=== PATIENT | female | born 1980 ===

== ENCOUNTER 2017-03-01 12:14 | Emergency (ER) | payer MEDICAID, OTHER ==
[2017-03-01 12:14] VITALS: BMI 20.9
[2017-03-01 12:20] VITALS: RESP 18
--- NOTE | 2017-03-01 13:32 | C.PDOC ---
History Of Present Illness Patient is a 36 y/o female presents to the ED for evaluation of worsening lower back pain after lifting a heavy patient at work 3 days ago. 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 States that pain is worse with heating pads and with hot showers. Denies taking any pain meds. Otherwise, denies any trauma, fever, chills, n/v/d, bowel or bladder incontinence/retention, saddle anesthesia, paresthesia, focal weakness, sensory deficit, gait dysfunction, hematuria or dysuria. No radiation of pain into lower extremities. Time Seen by Provider: 03/01/17 12:36 Chief Complaint (Nursing): Back Pain History Per: Patient History/Exam Limitations: no limitations Onset/Duration Of Symptoms: Days (3) Current Symptoms Are (Timing): Still Present Quality Of Discomfort: "Pain" Severity: Moderate Associated Symptoms: None. denies: Incontinence, New Weakness, New Numbness Exacerbating Factor(s): Nothing Recent travel outside of the [place]: No Additional History Per: Patient Past Medical History Reviewed: Historical Data, Nursing Documentation, Vital Signs Vital Signs: Last Vital Signs Temp 98.2 F 03/01/17 14:19 Pulse 61 03/01/17 14:19 Resp 18 03/01/17 14:19 BP 111/72 03/01/17 14:19 Pulse Ox 98 03/01/17 14:19 - Medical History PMH: Anxiety, Asthma, Fractures (LEFT LEG IN CHILDHOOD), Gastritis Denies: Chronic Kidney Disease Family History: States: Unknown Family Hx - Social History Hx Alcohol Use: Yes Hx Substance Use: No - Immunization History Hx Tetanus Toxoid Vaccination: No Hx Influenza Vaccination: Yes Hx Pneumococcal Vaccination: No Review Of Systems Except As Marked, All Systems Reviewed And Found Negative. Constitutional: Negative for: Fever, Chills Cardiovascular: Negative for: Chest Pain, Palpitations Respiratory: Negative for: Cough, Shortness of Breath Gastrointestinal: Negative for: Nausea, Vomiting, Abdominal Pain Genitourinary: Negative for: Dysuria, Frequency, Incontinence, Hematuria Musculoskeletal: Positive for: Back Pain Skin: Negative for: Rash, Bruising Neurological: Negative for: Weakness, Numbness Physical Exam - Physical Exam Appears: Non-toxic, No Acute Distress Skin: Normal Color, Warm, Dry Head: Atraumatic, Normacephalic Eye(s): bilateral: Normal Inspection Oral Mucosa: Moist Neck: Normal ROM, Supple Cardiovascular: Rhythm Regular, No Murmur Respiratory: Normal Breath Sounds, No Rales, No Rhonchi, No Wheezing Gastrointestinal/Abdominal: Soft, No Tenderness Back: No CVA Tenderness, No Vertebral Tenderness, Paraspinal Tenderness ( digitally reproducible tenderness to bilateral sacroiliac region) Extremity: Normal ROM, No Tenderness, No Deformity Neurological/Psych: Oriented x3, Normal Speech, Normal Cognition ED Course And Treatment O2 Sat by Pulse Oximetry: 99 (RA) Pulse Ox Interpretation: Normal Progress Note: motrin, ice pack Medical Decision Making Medical Decision Making: sacroiliac back strain, no nerve issues nsaids and ice educated. Disposition Doctor Will See Patient In The: Office Counseled Patient/Family Regarding: Studies Performed, Diagnosis - Disposition Referrals: [facility] [Outside] Mora Gaspar MD [Primary Care Provider] - Disposition: HOME/ ROUTINE Disposition Time: 13:31 Condition: GOOD Additional Instructions: ice packs 1/2 hour per hour, nothing hot!! Motrin 400-600 mg every 6 hours as needed Pepcid 20 mg @ night to prevent stomach irritation from the Motrin No heavy lifting for 1 week Follow-up in our Clinic as needed Instructions: Acute Low Back Pain (ED) Forms: [facility] ([place]), Work Excuse - Clinical Impression Clinical Impression: Low back strain - Scribe Statement The provider has reviewed the documentation as recorded by the Nazarioibele Melchor All medical record entries made by the Scribe were at my direction and personally dictated by me. I have reviewed the chart and agree that the record accurately reflects my personal performance of the history, physical exam, medical decision making, and the department course for this patient. I have also personally directed, reviewed, and agree with the discharge instructions and disposition.
[2017-03-01 14:20] VITALS: BP 111/72; PULSE 61; TEMP 98.2
[2017-03-01 15:42] VITALS: O2SAT 99
== END 2017-03-01 13:50 | disposition home or self-care (01) ==
LOC: C.ER 12:14 → SUPCPDRO 12:14 → C.ER 13:50
DX: S39.012A Strain of muscle, fascia and tendon of lower back, initial encounter (principal); X50.9XXA Other and unspecified overexertion or strenuous movements or postures, initial encounter; Y93.F2 Activity, caregiving, lifting; Y92.009 Unspecified place in unspecified non-institutional (private) residence as the place of occurrence of the external cause; Y99.0 Civilian activity done for income or pay

== ENCOUNTER 2018-08-25 14:43 | Emergency (ER) | payer MEDICAID, OTHER ==
[2018-08-25 14:44] VITALS: BMI 20.9
[2018-08-25 15:14] VITALS: RESP 18
--- NOTE | 2018-08-25 16:55 | C.PDOC ---
History Of Present Illness 37 y/o female presents to the ED for evaluation s/p facial trauma. Two nights ago patient was drinking and she fell down some stairs, striking her left cheek/eye area. She now complains of persistent pain and swelling to the area surrounding left eye. She also notes that when chewing, she feels a weird sensation to her cheek. Patient is concerned she may haven broken a facial bone. Otherwise she states her vision is unaffected. She denies double or blurry vision, photophobia, severe headache, nausea, vomiting, or other complaints. Time Seen by Provider: 08/25/18 15:45 Chief Complaint (Nursing): Eye Problem History Per: Patient History/Exam Limitations: no limitations Onset/Duration Of Symptoms: Days (x 2) Current Symptoms Are (Timing): Still Present Injury To Eye?: Yes Associated Symptoms: denies: Decreased Vision, Discharge From Eye Past Medical History Reviewed: Historical Data, Nursing Documentation, Vital Signs Vital Signs: Last Vital Signs Temp 98.4 F 08/25/18 15:10 Pulse 87 08/25/18 15:10 Resp 18 08/25/18 15:10 BP 129/83 08/25/18 15:10 Pulse Ox 98 08/25/18 15:10 - Medical History PMH: Anxiety, Asthma, Fractures (LEFT LEG IN CHILDHOOD), Gastritis Denies: Chronic Kidney Disease Family History: States: Unknown Family Hx - Social History Hx Alcohol Use: Yes Hx Substance Use: No - Immunization History Hx Tetanus Toxoid Vaccination: No Hx Influenza Vaccination: Yes Hx Pneumococcal Vaccination: No Review Of Systems Constitutional: Negative for: Fever, Chills, Weakness Eyes: Positive for: Pain, Eyelid Inflammation (and swelling to left cheek/face). Negative for: Vision Change ENT: Negative for: Mouth Swelling Cardiovascular: Negative for: Chest Pain Respiratory: Negative for: Cough, Shortness of Breath Gastrointestinal: Negative for: Nausea, Vomiting, Diarrhea Genitourinary: Negative for: Dysuria Musculoskeletal: Negative for: Back Pain Neurological: Negative for: Weakness, Numbness, Change in Speech, Headache, Dizziness Physical Exam - Physical Exam Appears: Non-toxic, No Acute Distress Skin: Normal Color, Warm, No Rash Head: Normacephalic, Tenderness (around left orbit and zygomatic bone), Swelling (and ecchymosis to left lower lid and area over zygomatic bone), No Abrasion Eye(s): bilateral: PERRL, EOMI (no apparent entrapment), left: Eyelid Inflammation, Other (Subconjunctival hemorrhage) Oral Mucosa: Moist Neck: Normal ROM Chest: Symmetrical Respiratory: No Accessory Muscle Use, Other (Normal inspiratory effort) Extremity: Bilateral: Atraumatic, Normal ROM Pulses: Left Radial: Normal, Right Radial: Normal Neurological/Psych: Oriented x3, Normal Cranial Nerves Gait: Steady ED Course And Treatment O2 Sat by Pulse Oximetry: 98 (RA) Pulse Ox Interpretation: Normal - CT Scan/US Maxillofacial CT Other Rad Studies (CT/US): Read By Radiologist, Radiology Report Reviewed CT/US Interpretation: Accession No. : [id number]. Patient Name / ID : ROMAN THAO / [id number]. Exam Date : 08/25/2018 16:23:13 ( Approved ). Study Comment : Sex / Age : F / 37Y. Creator : Shelley Aggarwal. Dictator : Pankaj Mckeon MD. Manager [employer] : Manager Technical Sales : Pankaj Mckeon MD. Approver2 : Report Date : 08/25/2018 16:32:58. My Comment : . Date of service: 08/25/2018. PROCEDURE: CT MAXILLOFACIAL BONES WITHOUT CONTRAST. HISTORY: fracture. COMPARISON: None available. TECHNIQUE: Contiguous axial CT images of the maxillofacial bones were obtained. Coronal and sagittal reformats were generated. Radiation dose: Total exam DLP = 826.56 mGy-cm. This CT exam was performed using one or more of the following dose reduction techniques: Automated exposure control, adjustment of the mA and/or kV according to patient size, and/or use of iterative reconstruction technique. FINDINGS: NASAL BONES: Unremarkable. ORBITS: Fracture of the depressed fracture of the zygomatic arch with additional non depressed fracture of the zygomatic arch more posteriorly. Fracture of the posterior and lateral taveras of the left maxillary sinus. Fracture of the anterior rim of the orbit. Fracture of the lateral rim of the orbit. No latrell orbital floor fracture. PARANASAL SINUSES/ MASTOIDS: As above. Chronic left maxillary sinusitis. MAXILLA: As above. MANDIBLE/ TEMPOROMANDIBULAR JOINTS: Unremarkable. SKULL BASE: Unremarkable. TEMPORAL BONES: Middle ears and mastoid grossly unremarkable. OTHER FINDINGS: None. IMPRESSION: Findings consistent with cycle Medico maxillary complex fracture. Fractures of the anterior and lateral taveras of the left maxillary sinus, lateral wall left orbit, lateral rim and inferior rim of left orbit. Depressed left zygomatic arch fracture. Medical Decision Making Medical Decision Making: Impression: Facial trauma Plan: * Maxillofacial CT CT shows multiple facial fractures. No latrell orbital floor fracture. Will page [facility] specialist to arrange for possible transfer. Patient given 50 mg PO Tramadol for pain control. 18:25 Case discussed with [facility] Dr. Monge, who states patient can call today and make an appointment in the clinic. Patient must bring CD copy of the CT scan. Disc provided upon discharge. Disposition Counseled Patient/Family Regarding: Studies Performed, Diagnosis, Need For Followup, Rx Given - Disposition Disposition: HOME/ ROUTINE Disposition Time: 18:40 Condition: STABLE Additional Instructions: [address] Monge of [facility] [place] [facility] aware of case. Prescriptions: RX: Ibuprofen [Motrin Tab] 800 mg PO TID PRN #21 tab PRN Reason: Pain, Moderate (4-7) RX: traMADol [Ultram] 50 mg PO TID PRN #15 tab PRN Reason: Pain, Severe (8-10) Instructions: Skull and Facial Fractures (DC) Forms: [facility] ([place]), General Discharge Instructions - Clinical Impression Clinical Impression: Closed tripod fracture of zygomaticomaxillary complex - PA / COMPO CONVEYOR OPERATOR / Resident Statement MD/DO has reviewed & agrees with the documentation as recorded. - Scribe Statement The provider has reviewed the documentation as recorded by the Scribe Laverne Velazquez All medical record entries made by the Scribe were at my direction and personally dictated by me. I have reviewed the chart and agree that the record accurately reflects my personal performance of the history, physical exam, medical decision making, and the department course for this patient. I have also personally directed, reviewed, and agree with the discharge instructions and disposition.
[2018-08-25 18:58] VITALS: BP 121/79; PULSE 68; TEMP 98.8
[2018-08-25 19:22] VITALS: O2SAT 98
== END 2018-08-25 18:58 | disposition home or self-care (01) ==
LOC: C.ER 14:43
DX: S02.40FA Zygomatic fracture, left side, initial encounter for closed fracture (principal); W10.9XXA Fall (on) (from) unspecified stairs and steps, initial encounter